=== PATIENT | male | born 1950 | race Caucasian/White ===

== ENCOUNTER 2018-11-12 13:08 | Observation (INO) ==
--- OUTSIDE RECORDS SUMMARY | 2018-11-12 13:11 | External Medical Summary | Continuity of Care Document ---
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 Refills: 0 Tamsulosin HCl - 0.4 MG Oral Capsule; daily Refills: 0 Losartan Potassium 50 MG Oral Tablet; TAKE 1 TABLET DAILY. 30 Tablet Bottle Refills: 0 Methylphenidate HCl - 20 MG Oral Tablet; daily Refills: 0 Excedrin TABS; TAKE 1 TABLET 3 TIMES DAILY NEEDED. Refills: 0 glipiZIDE 10 MG Oral Tablet; Two tabes every am Refills: 0 Procedures History of Inguinal Hernia Repair Status : Completed History of Laparoscopic Cholecystectomy With Status: Completed 01-Feb-2018 0:00 Cholangiography Immunizations Immunizations not documented Family History Mother Family history of cardiac disorder (V17.49) (Z82.49) Status: Active Family history of diabetes mellitus (V18.0) (Z83.3) Status: Active Family history of hypertension (V17.49) (Z82.49) Status: Svetlana hurst Father Family history of cardiac disorder (V17.49) (Z82.49) Status: Active Family history of diabetes mellitus (V18.0) (Z83.3) Status: Active Family history of hypertension (V17.49) (Z82.49) Status: Svetlana hurst Grandmother Family history of diabetes mellitus (V18.0) (Z83.3) Status: Active Family history of hypertension (V17.49) (Z82.49) Status: Svetlana hurst Social History - Smoking Status Current every day smoker Former smoker Plan of Treatment Planned Observations Planned Goals not documented Results No Known Results Results not documented Encounters Appointment; Chaz Thomas M.D. 01-Feb-2018 7:00 Encounter Diagnosis: Problem not documented Appointment; David Blanton M.D. 18-Jan-2018 13:35 Encounter Diagnosis: Problem not documented Appointment; Urology, Room 7 18-Jan-2018 13:20 Encounter Diagnosis: Problem not documented Appointment; Chaz Thomas M.D. 17-Jan-2018 9:40 Encounter Diagnosis: Problem not documented Appointment; Chaz Thomas M.D. 12-Feb-2018 14:00 Encounter Diagnosis: Problem not documented
[2018-11-12] MEDS ORDERED: SODIUM CHLORIDE 0.9% 500 ML IV SCH (13:30)
[2018-11-12] MEDS ORDERED: methylPREDNISolone 125 MG/2 ML VIAL IV STA (13:34)
[2018-11-12] MEDS ORDERED: ALBUT/IPRATROP 3MG/0.5MG NEB 3 ML VIAL NEB STA (13:34)
[2018-11-12] MEDS ORDERED: ONDANSETRON INJ 2 MG/ML 2 ML VIAL IV STA (13:34)
[2018-11-12] MEDS ORDERED: ACETAMINOPHEN 1,000 MG/100 ML VIAL IV STA (13:35)
--- NOTE | 2018-11-12 13:47 | XRay Report ---
XR chest 1V portable HISTORY: 68 years-old Male Chest Pain acute atypical chest pain COMPARISON: Chest radiograph 01/10/2018 TECHNIQUE: Portable AP view of the chest FINDINGS: Cardiomediastinal and hilar silhouettes are within normal limits and appear unchanged. There is no pn eumothorax, pleural effusion, focal airspace consolidation or overt pulmonary edema. Mild degenerativ e changes of the shoulders and spine. IMPRESSION: No acute process. The above report was generated using voice recognition software. It may contain grammatical, syntax o r spelling errors. Electronically signed by: Jamison Yanez M.D. 11/12/2018 1:46 PM
[2018-11-12 13:50] LABS: Basophils # (auto) 0.04 K/uL (0-0.2); Basophils % (auto) 0.3 %; Eosinophils # (auto) 0.03 K/uL (0-0.5); Eosinophils % (auto) 0.2 %; Hematocrit (blood only) 41.5 % (42-52); Hemoglobin 14.6 g/dL (14.0-18.0); Immature Granulocytes # (auto) 0.02 K/uL (0.00-0.02); Immature Granulocytes % (auto) 0.2 %; Lymphocytes # (auto) 1.38 K/uL (1.2-3.4); Lymphocytes % (auto) 11.3 %; Mean Corpuscular Hgb Conc 35.2 g/dL (32-36); Mean Corpuscular Volume 91.4 fL (80-100); Mean Platelet Volume 9.3 fL (7.4-10.4); Monocytes % (auto) 6.6 %; Neutrophils % (auto) 81.4 %; Platelet Count 292 K/uL (130-400); RDW Coefficient of Variation 13.1 % (11.5-14.5); RDW Standard Deviation 43.9 fL (36.4-46.3); Red Blood Count 4.54 M/uL (4.7-6.1); White Blood Count 12.17 K/uL (4.8-10.8)
[2018-11-12 14:07] LABS: Alanine Aminotransferase 22 U/L (12-78); Albumin Level 4.2 gm/dl (3.4-5.0); Aspartate Aminotransferase 12 U/L (15-37); BUN Creatinine Ratio 22.7 (10-20); Blood Urea Nitrogen 21 mg/dl (7-18); Calcium 9.2 mg/dl (8.5-10.1); Carbon Dioxide 26 mmol/L (21-32); Chloride 105 mmol/L (98-107); Est GFR (African American) 101.4; Est GFR (Non-African American) 87.5; Glucose 172 mg/dl (70-99); Magnesium 2.2 mg/dl (1.8-2.4); Potassium 3.8 mmol/L (3.5-5.1); Sodium 140 mmol/L (136-145)
[2018-11-12 14:12] LABS: Albumin Globulin Ratio 1.2 (0.9-2); Alkaline Phosphatase 89 U/L (45-117); Bilirubin,Total 0.4 mg/dl (0.2-1); Globulin 3.5 gm/dl (2.5-4.0); Phosphorus 4.1 mg/dl (2.5-4.9); Total Protein 7.7 gm/dl (6.4-8.2)
[2018-11-12] MEDS ORDERED: SODIUM CHLORIDE 0.9% 1000ML 1,000 ML IV ONE (14:22)
[2018-11-12] MEDS ORDERED: ASPIRIN CHEW 324 MG PO STA (17:42)
--- NOTE | 2018-11-12 18:23 | History & Physical Report ---
Date of Service November 12, 2018 Assessment & Plan (1) Chest pain: Heart score of 5, even with low-risk sounding story. Prior stress was negative, but that was >3 years ago per the patient. Initial troponin was 0.04 with next one of 0.05; not convincing for acute coronary ischemia. - Trend troponins and EKGs - Dobutamine stress in the AM (patient cannot walk long distances due to prior foot fracture) - Start aspirin 81mg daily (2) Asthma exacerbation: Mild asthma exacerbation from environmental causes. CXR showed no acute process, so will avoid abx for now. - Prednisone - DuoNebs standing and PRN (3) DMII (diabetes mellitus, type 2): No known A1c in charts. Blood sugars will likely rise with his prednisone. - Sliding scale insulin - Stop home oral meds - A1c in the morning (4) Hypertension: BP mildly elevated in the ED at 165/110. - Continue home meds - Monitor BP; consider adding another agent if consistently high (5) BPH (benign prostatic hyperplasia): - Continue tamsulosin (6) DVT prophylaxis: SCDs - Low DVT risk per admission calculator History of Present Illness Primary Care Provider: Julián Atwood DO 68-year-old male with a history of asthma who presents with chest pain and asthma exacerbation. Patient reports that he first noticed both some chest tightness as well as shortness of breath yesterday morning when he presented at work he reports that his work recently repaired/changed his HVAC system and now he has event directly over his desk. 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 He went to work this morning as normal, but when he sat at his desk he felt increased wheezing and chest tightness. He left his desk and the sensation improved; however, he returned to other times to his desk which worsened his chest tightness, chest pressure, and shortness of breath. He has not had any sick contacts. He denies any new fevers or chills, he denies any new diaphoresis, denies nausea or vomiting, denies palpitations, denies any new or different pain in his extremities. Allergies Allergy/AdvReac Type Severity Reaction Status Date / Time Penicillins Allergy Unknown hive Verified 11/12/18 14:16 NSAIDS (Non-Steroidal AdvReac Unknown gi distress Verified 11/12/18 14:16 Anti-Inflamma Home Medications Home Medications Medication Instructions Recorded Confirmed Type losartan 50 tab PO QAM 01/09/18 11/12/18 History metformin 1,000 tab PO BID 01/09/18 11/12/18 History methylphenidate HCl 30 tab PO QAM 01/09/18 11/12/18 History tamsulosin 0.4 mg PO QAM 01/09/18 11/12/18 History glipizide 20 mg PO QAM 01/30/18 11/12/18 History albuterol sulfate 2 puff INHALATION QID 11/12/18 11/12/18 History beclomethasone dipropionate [Qvar 1 mcg INHALATION BID 11/12/18 11/12/18 History RediHaler] hydrocodone-acetaminophen 1 tab PO HS 11/12/18 11/12/18 History losartan 50 mg PO DAILY 11/12/18 11/12/18 History Past Med/Surg History Medical History Hypertension DMII (diabetes mellitus, type 2) NIDDM GERD (gastroesophageal reflux disease) NO MEDS Gallstones Kidney stone on right side Lymphangioma of orbit Metatarsal fracture Obesity Prostate CA RADIATION THERAPY (2012) Surgical History H/O eye surgery R/T RIGHT ORBITAL LYMPHANGIOMA History of adenoidectomy History of colonoscopy History of cystoscopy CYSTOSCOPY, RIGHT URETEROSCOPY, LASER LITHO= 01/10/18= [facility] History of cystoscopy STENT REMOVAL 01/18/18 History of herniorrhaphy BILATERAL INGUINAL HERNIA REPAIR History of tonsillectomy Family History Mother Hypertension Other No pertinent family history Social History Preferred Language: Turkish Communication Ability: Effective Visual Impairment: No Limitations Supervising Bailiff Required: No Beliefs That Will Affect Care: Rastafari Rastafari Beliefs: Oriental Orthodox Current Living Situation: Spouse current occupational status: employed Feels Safe at Home: Yes Smoking Status: Former smoker (quit 2012) Tobacco Type: cigarettes ; Second Hand Exposure: No ; Hx Alcohol Use: Yes Alcohol type: other Hx Substance Use: No Review of Systems Review of Systems: All systems reviewed & are unremarkable except as noted in HPI & below Physical Exam Constitutional: WD/WN, vitals as above Eyes: EOM intact bilaterally; no conjunctival abnormality ENMT: external ear and nose normal, oropharynx normal Neck: trachea midline, no thyromegaly normal visual inspection Respiratory: + cough; no respiratory distress and not tachypneic Auscultation: + diminished lung sounds and + wheezes (Mild, scattered) Cardiovascular: RRR, no murmur, no edema Gastrointestinal (Abdomen): Inspection/Auscultation: abdomen normal to inspection; abdomen not distended Musculoskeletal: no cyanosis or clubbing, extremities motor strength 5/5 Skin: no rashes, warm and dry Neurologic: moves all extremities and awake Psychiatric: Orientation: alert, oriented to person and cooperative Results & Data Vital Signs (Past 12 Hours) Vital Signs Temp Pulse Pulse Resp BP BP Pulse Ox 11/12/18 18:03 99 H 26 H 164/113 H 98 11/12/18 17:03 77 20 146/86 H 95 11/12/18 16:00 77 15 133/82 97 11/12/18 15:17 77 15 133/74 99 11/12/18 14:35 88 20 130/72 94 11/12/18 13:56 109 H 26 H 97 11/12/18 13:11 36.7 C 134 H 22 174/102 H 97 PG Care Time/CCT Total # of Minutes Spent Total Time Spent with Patient: Total time spent is greater than 50% in coordination of care (as documented) at patient's floor/unit and/or counseling patient:
--- NOTE | 2018-11-12 18:36 | Emergency Department Note ---
Entered by Cyrus Power acting as a scribe for Juan Pablo Serrato MD History of Present Illness General Chief complaint: Chest Pain Stated complaint: INTENSE CHEST PAIN Time Seen by Provider: 11/12/18 13:16 Source: patient History of Present Illness Onset (ago): hour(s) (24) Location: chest Pain Consistency: + constant Maximum Pain Intensity: 5 Quality: + other (tightness and as if somone was sitting on chest ) Associated symptoms: + nausea/vomiting (+nausea; -vomiting), + shortness of breath and + other (+right abdominal pain); no headaches The patient is a 68 year old male who presents to the Emergency Room with complaints of constant chest pain over the past 24 hours. The patient describes the pain as tightness and as if someone was sitting on his chest. The patient believes the chest pain is a result of an airborne toxic at work. The patient states he works for the [employer] at [employer]. 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 The patient states he started experiencing chest pain and was forced to use both his steroidal and rescue inhaler multiple times during this incident. The patient states he experienced symptoms this morning as well and at work. The patient states that work has been done on the [employer] system at his workplace for two years, and he also notes a light at his workplace that just started working in the last two weeks. The patient states he had another asthma attack at work this morning, and he notes he was forced to use his inhaler multiple times again. The patient reports he rarely has used his inhaler in the past. The patient also states he started experiencing right abdominal pain, "where his gall bladder used to be". The patient reports he had his gallbladder removed in December. The patient also notes of nausea, but denies a headache. The patient reports he drove to [place] in September as his only recent long distance travel. Home Medications Home Medications Medication Instructions Recorded Confirmed Type losartan 50 tab PO QAM 01/09/18 11/12/18 History metformin 1,000 tab PO BID 01/09/18 11/12/18 History methylphenidate HCl 30 tab PO QAM 01/09/18 11/12/18 History tamsulosin 0.4 mg PO QAM 01/09/18 11/12/18 History glipizide 20 mg PO QAM 01/30/18 11/12/18 History albuterol sulfate 2 puff INHALATION QID 11/12/18 11/12/18 History beclomethasone dipropionate [Qvar 1 mcg INHALATION BID 11/12/18 11/12/18 History RediHaler] hydrocodone-acetaminophen 1 tab PO HS 11/12/18 11/12/18 History losartan 50 mg PO DAILY 11/12/18 11/12/18 History Allergies Allergy/AdvReac Type Severity Reaction Status Date / Time Penicillins Allergy Unknown hive Verified 11/12/18 14:16 NSAIDS (Non-Steroidal AdvReac Unknown gi distress Verified 11/12/18 14:16 Anti-Inflamma Past Med/Surg History Medical History Hypertension DMII (diabetes mellitus, type 2) NIDDM GERD (gastroesophageal reflux disease) NO MEDS Gallstones Kidney stone on right side Lymphangioma of orbit Metatarsal fracture Obesity Prostate CA RADIATION THERAPY (2012) Surgical History H/O eye surgery R/T RIGHT ORBITAL LYMPHANGIOMA History of adenoidectomy History of colonoscopy History of cystoscopy CYSTOSCOPY, RIGHT URETEROSCOPY, LASER LITHO= 01/10/18= LMA#5 AT [facility] History of cystoscopy STENT REMOVAL 01/18/18 History of herniorrhaphy BILATERAL INGUINAL HERNIA REPAIR History of tonsillectomy Family History Mother Hypertension Other No pertinent family history Social History Preferred Language: [place] Communication Ability: Effective Visual Impairment: No Limitations Foreign Broadcast Specialist Required: No Beliefs That Will Affect Care: None Current Living Situation: Spouse current occupational status: employed Feels Safe at Home: Yes Smoking Status: Former smoker Tobacco Type: cigarettes ; Cigarettes Per Day: 20 ; Second Hand Exposure: No ; Hx Alcohol Use: No Hx Substance Use: No Review of Systems See HPI for pertinent positives & negatives. and A total of 10 systems reviewed and were otherwise negative Physical Exam Vital Signs Vital Signs - 24 hr 11/12/18 13:11 11/12/18 13:56 11/12/18 14:35 Temperature 36.7 C Temperature Source Oral Sepsis Recent Fever Within 48 Hours No Sepsis Action Taken by Nursing No Action Required Pulse Rate 134 H Pulse Rate [Right Finger] 109 H 88 Respiratory Rate 22 26 H 20 Respiratory Effort / Characteristics Non-Labored Spontaneous Spontaneous Non-Labored Respiratory Depth Normal Normal Respiratory Pattern Regular Regular Blood Pressure 174/102 H Blood Pressure [Left Arm] 130/72 Blood Pressure Mean 126 Blood Pressure Mean [Left Arm] 91 Blood Pressure Position Lying Pulse Oximetry 97 97 94 Oxygen Delivery Method Room Air Room Air Room Air 11/12/18 15:17 11/12/18 16:00 11/12/18 17:03 Temperature Temperature Source Sepsis Recent Fever Within 48 Hours Sepsis Action Taken by Nursing Pulse Rate Pulse Rate [Right Finger] 77 77 77 Respiratory Rate 15 15 20 Respiratory Effort / Characteristics Non-Labored Respiratory Depth Normal Respiratory Pattern Regular Blood Pressure Blood Pressure [Left Arm] 133/74 133/82 146/86 H Blood Pressure Mean Blood Pressure Mean [Left Arm] 93 99 106 Blood Pressure Position Pulse Oximetry 99 97 95 Oxygen Delivery Method Room Air Room Air Room Air 11/12/18 18:03 Temperature Temperature Source Sepsis Recent Fever Within 48 Hours Sepsis Action Taken by Nursing Pulse Rate Pulse Rate [Right Finger] 99 H Respiratory Rate 26 H Respiratory Effort / Characteristics Non-Labored Respiratory Depth Normal Respiratory Pattern Regular Blood Pressure Blood Pressure [Left Arm] 164/113 H Blood Pressure Mean Blood Pressure Mean [Left Arm] 130 Blood Pressure Position Pulse Oximetry 98 Oxygen Delivery Method Room Air GENERAL: Awake, alert, anxious-appearing, in no distress HENT: Normocephalic, atraumatic. Oropharynx with dry mucous membranes and otherwise unremarkable. EYES: Normal conjunctiva. Sclera non-icteric. NECK: Supple. No nuchal rigidity. FROM. No JVD. RESPIRATORY: Scant intermittent wheezes otherwise CTAB. CARDIAC: Tachycardic rate, regular rhythm. Extremities warm and well perfused. Pulses equal. ABDOMEN: Soft, non-distended. No tenderness to palpation. No rebound or guarding. No masses. RECTAL: Deferred. MUSCULOSKELETAL: Chest examination reveals no tenderness. The back is symmetrical on inspection without obvious abnormality. There is no CVA tenderness to palpation. No joint edema. LOWER EXTREMITIES: Calves are equal size bilaterally and non-tender. No edema. No discoloration. NEURO: Normal sensorium. No sensory or motor deficits noted. SKIN: No rash or jaundice noted. Course 1328: Past medical records reviewed. The patient was evaluated in room C12B. A complete history and physical exam was performed. 1738: I discussed the case with Dr. Michelle-Burt [facility]. Dr. Michelle will further evaluate the patient. Consultations Consultation #1: I [facility]. Dr. Michelle will further evaluate the patient. Time: 17:38 Administered Medications Hydrocodone Bitart/Acetaminophen ([place] 5/325) 1 tab PO HS JUSTA Stop: 11/26/18 20:59 Last Admin: 11/12/18 20:54 Dose: 1 tab Documented by: [id number] Albuterol (Duoneb) 3 ml NEB Q4R JUSTA Stop: 12/12/18 19:29 Last Admin: 11/13/18 07:02 Dose: 3 ml Documented by: [id number] Admin: 11/13/18 02:08 Dose: 3 ml Documented by: [id number] Admin: 11/12/18 22:53 Dose: 3 ml Documented by: [id number] Admin: 11/12/18 20:12 Dose: 3 ml Documented by: [id number] Aspirin (Ecotrin Ectab) 81 mg PO QAM JUSTA Stop: 12/13/18 08:59 Last Admin: 11/13/18 08:09 Dose: 81 mg Documented by: [id number] Beclomethasone Dipropionate (Qvar 80mcg) 1 puffs INH BID JUSTA Stop: 12/12/18 20:59 Last Admin: 11/13/18 08:08 Dose: 1 puffs Documented by: [id number] Admin: 11/12/18 20:57 Dose: 1 puffs Documented by: [id number] Insulin Aspart (Novolog Flexpen) 0 units SC ACHS JUSTA Stop: 12/12/18 20:59 Last Admin: 11/13/18 08:11 Dose: 8 units Documented by: [id number] Cosigned by: [id number] Admin: 11/12/18 20:55 Dose: 6 units Documented by: [id number] Cosigned by: [id number] Losartan Potassium (Cozaar) 50 mg PO DAILY JUSTA Stop: 12/13/18 08:59 Last Admin: 11/13/18 08:09 Dose: 50 mg Documented by: [id number] Methylphenidate HCl (Ritalin) 30 mg PO DAILY JUSTA Stop: 11/27/18 08:59 Last Admin: 11/13/18 08:23 Dose: 30 mg Documented by: [id number] Morphine Sulfate (Morphine Sulfate) 2 mg IV Q4H PRN PRN Reason: Pain Stop: 11/26/18 20:01 Last Admin: 11/13/18 05:34 Dose: 2 mg Documented by: [id number] Admin: 11/12/18 22:19 Dose: 2 mg Documented by: [id number] Ondansetron HCl (Zofran) 4 mg IV Q4H PRN PRN Reason: Nausea Stop: 12/13/18 03:00 Last Admin: 11/13/18 03:11 Dose: 4 mg Documented by: [id number] Prednisone (Prednisone) 50 mg PO DAILY JUSTA Stop: 12/13/18 08:59 Last Admin: 11/13/18 08:10 Dose: 50 mg Documented by: [id number] Tamsulosin HCl (Flomax) 0.4 mg PO QAM JUSTA Stop: 12/13/18 08:59 Last Admin: 11/13/18 08:10 Dose: 0.4 mg Documented by: [id number] Discontinued Medications Albuterol (Duoneb) 3 ml NEB NOW STA Stop: 11/12/18 13:35 Last Admin: 11/12/18 13:56 Dose: 3 ml Documented by: [id number] Aspirin (Aspirin) 162 mg PO NOW STA Stop: 11/12/18 17:43 Last Admin: 11/12/18 18:01 Dose: 162 mg Documented by: [id number] Calcium Carbonate (Tums) 500 mg PO ONE PRN PRN Reason: Indigestion Last Admin: 11/13/18 06:28 Dose: 500 mg Documented by: [id number] Sodium Chloride (Nss) 500 mls @ 999 mls/hr IV .Q31M JUSTA Stop: 11/12/18 14:00 Last Infusion: 11/12/18 14:28 Dose: 0 mls/hr Documented by: [id number] Admin: 11/12/18 13:55 Dose: 999 mls/hr Documented by: [id number] Acetaminophen (Ofirmev) 1,000 mg in 100 mls @ 400 mls/hr IV NOW STA Stop: 11/12/18 13:49 Last Infusion: 11/12/18 14:28 Dose: 0 mls/hr Documented by: [id number] Admin: 11/12/18 13:55 Dose: 400 mls/hr Documented by: [id number] Sodium Chloride (Nss 1000ml) 1,000 mls @ 999 mls/hr IV .Q1H1M ONE Stop: 11/12/18 15:22 Last Infusion: 11/12/18 15:48 Dose: 0 mls/hr Documented by: [id number] Admin: 11/12/18 14:41 Dose: 999 mls/hr Documented by: [id number] Methylprednisolone (Solumedrol) 125 mg IV NOW STA Stop: 11/12/18 13:35 Last Admin: 11/12/18 13:55 Dose: 125 mg Documented by: [id number] Ondansetron HCl (Zofran) 4 mg IV NOW STA Stop: 11/12/18 13:35 Last Admin: 11/12/18 13:55 Dose: 4 mg Documented by: [id number] Medical Decision Making Differential Diagnosis Differential diagnosis: Etiologies such as infections, reactive airway disease, pneumonia, pneumothorax, COPD, CHF, cardiac ischemia, pulmonary embolism, musculoskeletal, gastrointestinal, as well as others were entertained. Medical Records Attestation: I reviewed the patient's medical records. Home Medications Current Medication List: was personally reviewed by me Laboratory Data Attestation: I reviewed the patient's lab results. Result diagrams: 11/13/18 06:16 11/13/18 06:16 Lab Results 11/12/18 11/12/18 11/12/18 Range/Units 13:41 13:41 16:17 WBC 12.17 H (4.8-10.8) K/uL RBC 4.54 L (4.7-6.1) M/uL Hgb 14.6 (14.0-18.0) g/dL Hct 41.5 L (42-52) % MCV 91.4 (80-100) fL MCH 32.2 (25-34) pg MCHC 35.2 (32-36) g/dL RDW Std Deviation 43.9 (36.4-46.3) fL RDW Coeff of Sarah 13.1 (11.5-14.5) % Plt Count 292 (130-400) K/uL MPV 9.3 (7.4-10.4) fL Immature Gran % (Auto) 0.2 % Neut % (Auto) 81.4 % Lymph % (Auto) 11.3 % Fannin % (Auto) 6.6 % Eos % (Auto) 0.2 % Baso % (Auto) 0.3 % Immature Gran # (Auto) 0.02 (0.00-0.02) K/uL Neut # (Auto) 9.90 H (1.4-6.5) K/uL Lymph # (Auto) 1.38 (1.2-3.4) K/uL Fannin # (Auto) 0.80 H (0.11-0.59) K/uL Eos # (Auto) 0.03 (0-0.5) K/uL Baso # (Auto) 0.04 (0-0.2) K/uL Sodium 140 (136-145) mmol/L Potassium 3.8 (3.5-5.1) mmol/L Chloride 105 (98-107) mmol/L Carbon Dioxide 26 (21-32) mmol/L Anion Gap 8.0 (3-11) BUN 21 H (7-18) mg/dl Creatinine 0.91 (0.6-1.4) mg/dl Est Cr Clr Drug Dosing Not Reportable Est GFR ( Amer) 101.4 Est GFR (Non-Af Amer) 87.5 BUN/Creatinine Ratio 22.7 H (10-20) Glucose 172 H (70-99) mg/dl Calcium 9.2 (8.5-10.1) mg/dl Phosphorus 4.1 (2.5-4.9) mg/dl Magnesium 2.2 (1.8-2.4) mg/dl Total Bilirubin 0.4 (0.2-1) mg/dl AST 12 L (15-37) U/L ALT 22 (12-78) U/L Alkaline Phosphatase 89 (45-117) U/L Troponin I 0.040 0.052 H* (0-0.045) ng/ml Total Protein 7.7 (6.4-8.2) gm/dl Albumin 4.2 (3.4-5.0) gm/dl Globulin 3.5 (2.5-4.0) gm/dl Albumin/Globulin Ratio 1.2 (0.9-2) Lipase 155 (73-393) U/L Imaging Data Radiologist's Impression: Radiology results as stated below per my review and the radiologist's interpretation: XR chest 1V portable HISTORY: 68 years-old Male Chest Pain acute atypical chest pain COMPARISON: Chest radiograph 01/10/2018 TECHNIQUE: Portable AP view of the chest FINDINGS: Cardiomediastinal and hilar silhouettes are within normal limits and appear unchanged. There is no pneumothorax, pleural effusion, focal airspace consolidation or overt pulmonary edema. Mild degenerative changes of the shoulders and spine. IMPRESSION: No acute process. The above report was generated using voice recognition software. It may contain grammatical, syntax or spelling errors. Electronically signed by: Jamison Yanez M.D. 11/12/2018 1:46 PM ECG Data Attestation: I personally reviewed and interpreted this ECG as follows: Indication: chest pain Rate (beats per minute): 119 Rhythm: sinus tachycardia Findings: + other (normal axis, no overt acute ischemia, QRS 98) and + PVC (occasional ) Comparison ECG Date: from (01/10/18) Change: no significant change Blood Pressure Blood Pressure Findings: Normal blood pressure MDM Narrative The patient is a pleasant 68-year-old gentleman with a past medical history of asthma, BPH, retention who presents emergency department with shortness of breath, wheezing and chest tightness since yesterday per hpi. On arrival patient is anxious appearing but no acute distress, afebrile with heart rate in 130s and vital signs otherwise stable. Patient appears clinically dry. Scant intermittent wheezes otherwise clear. EKG demonstrates sinus tachycardia, QRS 98, without overt acute ischemia and similar to prior. Chest x-ray negative for acute process. WBC 12, nonspefic. Hbg and platelets wnl. Chemistry without acidosis. BUN/Cr > 20 c/w patient's clinically dry appearance. Electrolytes and LFTs unremarkable. Patient feeling improved with resolution of sx after initial treatment with Solumedrol, duoneb, IVF, and Apap. HR improved to 70s-80s. Initial troponin 0.04 however given the patient reported acute worsening of symptoms prior to arrival today delta 3-hour troponin was performed and demonstrated interval change to 0.052. Also during this time the patient had a brief 1 minute episode of substernal chest pain that resolved however repeat EKG was unchanged. Given the patient's recurrent symptoms and troponin elevation reasonable to admit the patient for further cardiac evaluation. Case was discussed with RACIEL LongoriaG hospitalist, who evaluate the patient for admission. Impression & Plan Elevated troponin, Asthma exacerbation, Chest pain Discharge Plan Visit Data *Final* Discharge Date/Time: 11/12/18 18:54 Chief Complaint: Chest Pain Stated Complaint: INTENSE CHEST PAIN ED Provider: Juan Pablo Serrato Discharge Problem: Elevated troponin, Asthma exacerbation, Chest pain Patient Disposition: Admitted As Inpatient Discharge Instructions Interventions: ED Discharge Assessment Last Done: 11/12/18 18:54 Discharge Problem: Asthma exacerbation Qualifiers: Asthma severity: unspecified severity Asthma persistence: unspecified Qualified Code(s): J45.901 - Unspecified asthma with (acute) exacerbation Chest pain Qualifiers: Chest pain type: unspecified Qualified Code(s): R07.9 - Chest pain, unspecified The scribe's documentation has been prepared under my direction and personally reviewed by me in its entirety. I confirm that the note above accurately reflects all work, treatment, procedures, and medical decision making performed by me.
[2018-11-12] MEDS ORDERED: ACETAMINOPHEN 325 MG TAB PO PRN (19:11)
[2018-11-12] MEDS ORDERED: GLUCAGON FOR INJ 1 MG VIAL SQ PRN (19:11)
[2018-11-12] MEDS ORDERED: GLUCOSE 40% GEL 15 GM TUBE PO PRN (19:11)
[2018-11-12] MEDS ORDERED: GLUCOSE 10 TABS/TUBE PO PRN (19:11)
[2018-11-12] MEDS ORDERED: DEXTROSE 50% 50 ML SYRINGE IV PRN (19:11)
[2018-11-12] MEDS ORDERED: CARBOHYDRATES FOR HYPOGLYCEMIA PO PRN (19:11)
[2018-11-12] MEDS: ALBUT/IPRATROP 3MG/0.5MG NEB 3 ML VIAL NEB SCH ×2 (20:12→22:53)
[2018-11-12] MEDS: HYDROCODONE/ACETAMOPHEN 5/325MG TAB PO SCH (20:54)
[2018-11-12] MEDS: INSULIN ASPART 100 UNITS/ML 3 ML PEN SC SCH (20:55)
[2018-11-12] MEDS: BECLOMETHASONE DIP HFA 80 MCG 8.7G INH INH SCH (20:57)
[2018-11-12] MEDS ORDERED: HydrALAZINE HCL 20 MG/ML VIAL IV PRN (21:40)
[2018-11-12] MEDS: MoRPHine SULFATE 2 MG/ML CARP IV PRN (22:19)
[2018-11-13] MEDS: ALBUT/IPRATROP 3MG/0.5MG NEB 3 ML VIAL NEB SCH ×3 (02:08→13:02)
[2018-11-13] MEDS: ONDANSETRON INJ 2 MG/ML 2 ML VIAL IV PRN ×3 (03:11→18:18)
[2018-11-13] MEDS: MoRPHine SULFATE 2 MG/ML CARP IV PRN ×3 (05:34→18:21)
[2018-11-13] MEDS ORDERED: CALCIUM CARBONATE 500 MG CHEWABLE TAB PO PRN (06:13)
[2018-11-13 06:33] LABS: Hemoglobin 13.5 g/dL (14.0-18.0); Mean Corpuscular Hgb Conc 34.6 g/dL (32-36); Mean Corpuscular Volume 90.9 fL (80-100); Mean Platelet Volume 9.7 fL (7.4-10.4); Platelet Count 278 K/uL (130-400); RDW Standard Deviation 43.2 fL (36.4-46.3); Red Blood Count 4.29 M/uL (4.7-6.1); White Blood Count 11.32 K/uL (4.8-10.8)
[2018-11-13 06:47] LABS: Estimated Average Glucose 177 mg/dl; Hemoglobin A1C 7.8 % (4.5-5.6)
[2018-11-13 07:16] LABS: Calcium 9.1 mg/dl (8.5-10.1); Creatinine Clr Calc Pharmacy 103.4 ml/min; Est GFR (African American) 105.7; Est GFR (Non-African American) 91.2; Potassium 4.6 mmol/L (3.5-5.1)
[2018-11-13] MEDS: BECLOMETHASONE DIP HFA 80 MCG 8.7G INH INH SCH ×2 (08:08→21:05)
[2018-11-13] MEDS: ASPIRIN 81 MG ECTAB PO SCH (08:09)
[2018-11-13] MEDS: LOSARTAN POTASSIUM 50 MG TAB PO SCH (08:09)
[2018-11-13] MEDS: TAMSULOSIN HCL 0.4 MG CAP PO SCH (08:10)
[2018-11-13] MEDS: predniSONE 50 MG TAB PO SCH (08:10)
[2018-11-13] MEDS: INSULIN ASPART 100 UNITS/ML 3 ML PEN SC SCH ×4 (08:11→20:50)
[2018-11-13] MEDS: METHYLPHENIDATE HCL 10 MG TABLET PO SCH (08:23)
[2018-11-13] MEDS ORDERED: MIDAZOLAM HCL 1 MG/ML 2ML VIAL ONE ×3 (10:42→11:39)
[2018-11-13] MEDS ORDERED: HEPARIN (PORCINE) 1000 UNIT/ML 10 ML (CATH LAB USE ONLY) ONE ×2 (10:42→11:32)
[2018-11-13] MEDS ORDERED: fentaNYL citrate 100 MCG/2 ML VIAL ONE ×2 (10:42→11:32)
[2018-11-13] MEDS ORDERED: NITROGLYCERIN/D5W 100MCG/ML 20ML SYR ONE (10:43)
[2018-11-13] MEDS ORDERED: NiCARDipine HCL INJ 2.5 MG/ML 10 ML AMP ONE (10:43)
[2018-11-13] MEDS ORDERED: ONDANSETRON INJ 2 MG/ML 2 ML VIAL ONE (10:46)
[2018-11-13] MEDS ORDERED: MoRPHine SULFATE 2 MG/ML CARP ONE ×2 (10:50→10:54)
[2018-11-13] MEDS ORDERED: CLOPIDOGREL BISULFATE 300 MG TAB ONE (11:49)
--- NOTE | 2018-11-13 11:52 | Pre Anesthesia Assessment ---
Date of Service November 13, 2018 Pre Sedation Assessment Vital Signs Temp Pulse Pulse Resp BP BP BP 11/13/18 08:00 36.6 C 61 18 165/79 H 11/13/18 07:20 56 L 11/13/18 07:04 83 16 11/13/18 03:59 36.6 C 78 19 159/92 H 11/13/18 02:08 60 16 11/12/18 23:57 92 H 11/12/18 23:34 36.8 C 93 H 19 148/90 H 11/12/18 22:53 86 16 11/12/18 20:47 112 H 11/12/18 20:15 91 H 16 11/12/18 19:13 36.8 C 92 H 18 177/93 H 11/12/18 18:54 11/12/18 18:41 82 16 177/99 H 11/12/18 18:03 99 H 26 H 164/113 H 11/12/18 17:03 77 20 146/86 H 11/12/18 16:00 77 15 133/82 11/12/18 15:17 77 15 133/74 11/12/18 14:35 88 20 130/72 11/12/18 13:56 109 H 26 H 11/12/18 13:11 36.7 C 134 H 22 174/102 H Pulse Ox 11/13/18 08:00 94 11/13/18 07:20 11/13/18 07:04 96 11/13/18 03:59 97 11/13/18 02:08 98 11/12/18 23:57 11/12/18 23:34 95 11/12/18 22:53 98 11/12/18 20:47 11/12/18 20:15 97 11/12/18 19:13 95 11/12/18 18:54 95 11/12/18 18:41 97 11/12/18 18:03 98 11/12/18 17:03 95 11/12/18 16:00 97 11/12/18 15:17 99 11/12/18 14:35 94 11/12/18 13:56 97 11/12/18 13:11 97 Cardiovascular RRR, no murmur, no edema Respiratory normal respiratory effort, lungs clear to auscultation Pre-Sedation Airway Assessment Smoking Status: Former smoker Hx Sleep Apnea: No Hx Difficult Intubation: No Short, Thick Neck: No Thyromental Distance: > or= 3.5 Finger Breadths Oral Cavity: + WNL Mallampati Class: III Procedure Planning Contraindications for Sedation: none Current Medications Reviewed: Yes Notes The planned sedation has been discussed with the patient. Informed Consent was obtained. I have identified the patient, determined the appropriateness of sedation and have assessed the patient immediately prior to the procedure. All medicine(s) and interventions are by my order.
--- NOTE | 2018-11-13 11:52 | Post Anesthesia Assessment ---
Date of Service November 13, 2018 Post Sedation Assessment Vital Signs Temp Pulse Pulse Resp BP BP BP 11/13/18 08:00 36.6 C 61 18 165/79 H 11/13/18 07:20 56 L 11/13/18 07:04 83 16 11/13/18 03:59 36.6 C 78 19 159/92 H 11/13/18 02:08 60 16 11/12/18 23:57 92 H 11/12/18 23:34 36.8 C 93 H 19 148/90 H 11/12/18 22:53 86 16 11/12/18 20:47 112 H 11/12/18 20:15 91 H 16 11/12/18 19:13 36.8 C 92 H 18 177/93 H 11/12/18 18:54 11/12/18 18:41 82 16 177/99 H 11/12/18 18:03 99 H 26 H 164/113 H 11/12/18 17:03 77 20 146/86 H 11/12/18 16:00 77 15 133/82 11/12/18 15:17 77 15 133/74 11/12/18 14:35 88 20 130/72 11/12/18 13:56 109 H 26 H 11/12/18 13:11 36.7 C 134 H 22 174/102 H Pulse Ox 11/13/18 08:00 94 11/13/18 07:20 11/13/18 07:04 96 11/13/18 03:59 97 11/13/18 02:08 98 11/12/18 23:57 11/12/18 23:34 95 11/12/18 22:53 98 11/12/18 20:47 11/12/18 20:15 97 11/12/18 19:13 95 11/12/18 18:54 95 11/12/18 18:41 97 11/12/18 18:03 98 11/12/18 17:03 95 11/12/18 16:00 97 11/12/18 15:17 99 11/12/18 14:35 94 11/12/18 13:56 97 11/12/18 13:11 97 Recovery Score Activity: Moves 4 extremities Respiration: Deep Breath/Cough Circulation: +/-20% PreAnes Value Consciousness: Fully Awake Oxygen Saturation: O2 needed for >90% Discharge Sedation Level of Care: Fast Track Phase II Post Sedation Plan On clinical assessment, the patient appears to have tolerated the sedation without complications. Patient is recovering as anticipated. Patient will continue to be monitored by nursing and may be discharged when sedation discharge criteria are met per below protocol. Upon Completions of procedure and additional 15 minutes continue every 5 minute vital signs and the P.A.R. score; then discharge to a Phase I or Fast Track to Phase II per the following guidelines: * Discharge Patient to appropriate Phase II area if PAR is 8 or greater or return to pre- procedure baseline. The post - procedure orders will be as directed. * If PAR score is less than 8 or not return to pre-procedure baseline then patient will follow Phase I monitoring till PAR is reached for Phase II. The Phase I may be done in procedure room or may call to secure a Phase I area. * If naloxone or flumazenil are used for reversal, hold in Phase I for continued monitoring from when last reversal dose was given for a minimum of 60 minutes or longer pending the nurse and/or physician discretion of patient condition before discharge to Phase II. Please call the Sedation Physician to re-evaluate and complete post-note for discharge to Phase II area. Do NOT discharge from procedure sedation or Phase 1 until post- sedation evaluation note is complete by procedure /sedation MD Sedation Discharge Instructions to be given to the patient at discharge to home.
--- NOTE | 2018-11-13 12:02 | Cardiac Catheterization ---
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 Cardiac Status Clinical evaluation leading to the procedure CAD Presenation: Non STEMI Anginal Classification: CCS IV Heart Failure: No Cardiogenic Shock within 24 Hours: No Cardiac Arrest within 24 Hours: No Imaging Studies Past 6 Months: Yes Stress Studies Past 6 Months: No Diagnostic Physicians Name: Bennett Warren MD Closure Device Percutaneous Entry Location: Brachial Closure Device: Radial Band Recommendations: PCI without planned CABG PCI Indication: PCI for high risk Non-KRISH Lesion Segment Name: Proximal OM 1 Culprit Artery: Yes Stenosis Prior to Rx (%): 90 Chronic Total Occlusion: No IVUS: No FFR: No Pre-Procedure PERRY Flow: 3 Previously Treated Lesion: No Lesion Complexity: Non-High/Non-C Lesion Length (mm): 15 Thrombus Present: No Bifurcation Lesion: No Guidewire Across Lesion: Stenosis Post-Procedure (%): 0 Post-Procedure PERRY Flow: 3 Devices(s) Deployed: Yes Yes Intraprocedure Events Significant Disection: No Perforation: No Cardiac Cath Procedure Full Procedure Date November 13, 2018 Pre-Procedure Diagnosis Pre-Procedure Diagnosis: Acute Coronary Syndrome AUC Score AUC Score: 8 Post-Procedure Diagnosis Post-Procedure Diagnosis: Severe CAD and Normal Intracardiac Pressures Procedure(s) Performed Procedure(s) Performed: Coronary Angiography, Left Heart Cath, Drug Eluting Stent and IVUS Line Maintainer Bennett Warren MD Emergency Room Orderly(s) Rasheed Estimated Blood Loss Estimated Blood Loss: 10 Medication(s) Medication(s): Clopidogrel, Fentanyl, Heparin, Lidocaine 1%, Nicardipine, Nitroglycerin and Versed Summary of Findings Indication: Suspected acute coronary syndrome Access: 6 Fr right radial artery Catheters: Newell, JL 3.5 guide Findings: LM -moderate caliber, 30% ostial disease with catheter dampening with engagement LAD -moderate caliber vessel, calcified, diffuse proximal to mid 40 to 50% disease, distal luminal irregularities and tapers prior to apex. Large first diagonal with 30 to 40% disease Circumflex -moderate caliber vessel, 20 to 30% mid segment disease, small to moderate caliber first OM with 80 to 90% disease. Bifurcating OM 2 with 70% disease at bifurcation. RCA -dominant, large caliber vessel, 30 to 40% ostial stenosis, diffuse 20 to 30% mid segment disease, distal luminal irregularities, diffuse 20 to 30% disease in proximal PDA, large caliber right PLB 2 and 3. Small PLB 1 with 60 to 70% proximal disease. LVEDP -10 -- PCI -- Antithrombotic therapy: Heparin, clopidogrel Procedure: Left main cannulated with JL 3.5 guide BMW wire placed into mid LAD IVUS used to assess ostium of left main. Moderate diffuse proximal LAD disease. Circumferential, mildly calcified, moderate disease involving ostium the left main (MLA 9.9 mm). BMW wire removed from LAD and placed into OM1 Proximal OM1 lesion predilated with 2.0 compliant balloon Dilated lesion stented with 2.25 x 18 mm [place] drug-eluting stent Stent post-dilated with stent balloon IC vasodilators administered for spasm Post procedure PERYR 3 flow, stent well expanded with minimal residual stenosis and no apparent cardiac complications. Arterial Closure: TR band Summary: 1. 80 to 90% proximal small to moderate caliber OM1 2. 30% ostial left main (nonobstructive by IVUS MLA 9.9 mm) 3. Mild to moderate nonobstructive multivessel disease 30 to 40% ostial RCA, 60-70% small right PLB 40 to 50% diffuse proximal to mid LAD 60-70% proximal bifurcating OM 2 4. Normal intracardiac filling pressure 5. Successful PCI of proximal OM1 with single drug-eluting stent (2.25 x 18 mm Kwadwo). Recommendations: To PCU for continued monitoring Loaded with clopidogrel 600 mg in cardiac catheterization technologist Continue dual-antiplatelet therapy for at least one year Continue statin, and ASCVD risk factor modification Consult cardiac Rehab Hemodynamics Rest Ao:: 112/60/83 Final Ao: 129/59/89 LV: 127/10 Recommendations Recommendations: PCI without planned CABG Specimens Specimens: None Radiation Exposure (mGy) 2560 Contrast (mls) 150 Fluids (cc crystalloids) Fluids (cc crystalloids): 90 Drains Drains: None Anesthesia Moderate Procedural Complication(s) None Disposition PCU
[2018-11-13] MEDS ORDERED: ONDANSETRON INJ 2 MG/ML 2 ML VIAL IV PRN (12:03)
[2018-11-13] MEDS ORDERED: SODIUM CHLORIDE 0.9% 1000ML 1,000 ML IV SCH (12:15)
--- NOTE | 2018-11-13 13:44 | Hospitalist Progress Note ---
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 CXR showed no acute process, so will avoid abx for now. - Prednisone - DuoNebs to PRN per pt request No longer with SOB post-cath, possibly asthma was being triggered by cardiac status (3) Nausea: States sx are similar to pre-mamie Mamie was last fall Possibly cholidocholithiasis Will need eval for this once cardiac issues are stable, not necessarily as inpt if tolerating PO-I did discuss this with pt and and they agree (4) DMII (diabetes mellitus, type 2): No known A1c in charts. Blood sugars will likely rise with his prednisone. - Sliding scale insulin - Stop home oral meds - A1c 7.8 (5) Hypertension: BP mildly elevated in the ED at 165/110. - Continue home meds - Monitor BP; consider adding another agent if consistently high (6) BPH (benign prostatic hyperplasia): - Continue tamsulosin (7) DVT prophylaxis: SCDs - Low DVT risk per admission calculator Subjective Pt still with chest pain, however it is improved to about a 5/10 from 9/10 prior to cath. Morphine is helping. Ongoing nausea that has been an issue for the last few weeks, worse the last week. Pt states he had his gallbladder out last fall and was doing great, however about a month ago he started having intense spells of nausea after eating that would last 5-10 minutes. Over the last week they have been more frequent and more intense. He is having epigastric pain that radiates to the R. All of this is similar to prior to his cholecystectomy. Zofran does help some. 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 Pt denies SOB s/p cath. He states that the nebs make his anxiety much worse and he would rather not have this scheduled. Ongoing LE pain related to known hip injury. Pt denies fever, abd pain, c/d, LE swelling. Review of Systems Review of Systems: Pertinent positives and negatives reviewed in HPI--all others negative Physical Exam Constitutional: WD/WN, vitals as above Eyes: normal visual lopez by confrontation and + anicteric sclerae Neck: normal visual inspection and trachea midline Respiratory: normal respiratory effort, lungs clear to auscultation Cardiovascular: Rate/Rhythm: regular rate and regular rhythm Gastrointestinal (Abdomen): Inspection/Auscultation: abdomen not distended Percussion/Palpation: + abdomen tender (diffuse) and abdomen soft Musculoskeletal: Head/Neck/Chest: normocephalic and head atraumatic negative for edema, peripheral pulses intact Skin: no rashes, warm and dry Neurologic: awake; not confused Speech / Cognition: normal speech Psychiatric: A+Ox3, euthymic affect Results & Data Vital Signs (Past 12 Hours) Vital Signs Temp Pulse Pulse Resp BP BP Pulse Ox 11/13/18 13:30 85 20 148/68 H 96 11/13/18 13:03 88 20 156/72 H 97 11/13/18 12:48 86 20 155/87 H 97 11/13/18 12:33 85 20 152/78 H 94 11/13/18 12:23 36.6 C 102 H 102 H 20 146/72 H 96 11/13/18 08:00 36.6 C 61 18 165/79 H 94 11/13/18 07:20 56 L 11/13/18 07:04 83 16 96 11/13/18 03:59 36.6 C 78 19 159/92 H 97 11/13/18 02:08 60 16 98 PG Care Time/CCT Total # of Minutes Spent Total Time Spent with Patient: Total time spent is greater than 50% in coordination of care (as documented) at patient's floor/unit and/or counseling patient: (1) Chest pain Chest pain type: unspecified Qualified Code(s): R07.9 - Chest pain, unspecified (2) Asthma exacerbation Asthma persistence: unspecified Asthma severity: unspecified severity Qualified Code(s): J45.901 - Unspecified asthma with (acute) exacerbation
--- NOTE | 2018-11-13 14:32 | Cardiology Consultation ---
Date of Consultation November 13, 2018 Assessment & Plan (1) Chest pain: The patient is description of chest discomfort is very concerning for an acute coronary syndrome. He demonstrated transient ST elevation in the anteroseptal leads last evening, and his troponin was mildly elevated. As he was having ongoing symptoms at rest, we have opted to proceed with an urgent cardiac catheterization. (2) Elevated troponin: Mildly elevated, but the history is concerning. As above, we will proceed with an urgent cardiac catheterization. (3) Abnormal ECG: Dynamic changes noted in the anteroseptal leads. Management as above. History of Present Illness Attending Physician: Naeem Michelle MD History of Present Illness The patient is a 68-year-old male admitted last evening with a chest pain syndrome. I was called to evaluate the patient to cardiopulmonary lab because of a sinus tachycardia. Unfortunately, the patient has history is difficult to obtain as the patient is unable to remain focused when asked a question. In any event, it appears that he began experiencing an exacerbation of his asthma over the weekend. When he would use 1 of his rescue inhalers, he developed significant discomfort in the mid epigastrium which radiated across the lower chest towards his right axilla. He would have associated nausea, vomiting, and diaphoresis. This occurred several times each day, however, became quite pronounced yesterday while at work. On arrival here, his initial troponin was at the upper limits of normal and his EKG showed no acute findings. A dobutamine stress test was ordered for further evaluation. Of note, an EKG obtained at 10:24 p.m. noted sinus rhythm with ST elevation across the anteroseptal leads. On my arrival to the cardiopulmonary lab, the patient was complaining of chest discomfort as described above. He was holding and emesis basin and was diaphoretic. A quick look at his left ventricle suggested hypokinesis of the apex. I immediately call Dr. Warren and described the situation. We decided to proceed with an urgent cardiac catheterization. I partially wheeled the patient over to the cardiac catheterization laboratory. Past medical and surgical history 1. Hypertension 2. Diabetes mellitus 3. Asthma 4. GERD 5. Nephrolithiasis 6. History of prostate carcinoma-XRT, 2012 7. Right orbital lymphoangioma 8. Bilateral inguinal hernia repair 9. Tonsillectomy Social history and lives with his [facility] Quit tobacco use in 2012 Social alcohol Family history Unknown as he was raised by his grandparents Review of systems A 10 point review of systems was undertaken and negative except for that described above. Allergies Allergy/AdvReac Type Severity Reaction Status Date / Time Penicillins Allergy Unknown hive Verified 11/12/18 14:16 NSAIDS (Non-Steroidal AdvReac Unknown gi distress Verified 11/12/18 14:16 Anti-Inflamma Home Medications Home Medications Medication Instructions Recorded Confirmed Type losartan 50 tab PO QAM 01/09/18 11/12/18 History metformin 1,000 tab PO BID 01/09/18 11/12/18 History methylphenidate HCl 30 tab PO QAM 01/09/18 11/12/18 History tamsulosin 0.4 mg PO QAM 01/09/18 11/12/18 History glipizide 20 mg PO QAM 01/30/18 11/12/18 History albuterol sulfate 2 puff INHALATION QID 11/12/18 11/12/18 History beclomethasone dipropionate [Qvar 1 mcg INHALATION BID 11/12/18 11/12/18 History RediHaler] hydrocodone-acetaminophen 1 tab PO HS 11/12/18 11/12/18 History losartan 50 mg PO DAILY 11/12/18 11/12/18 History Patient History Medical History Hypertension DMII (diabetes mellitus, type 2) NIDDM GERD (gastroesophageal reflux disease) NO MEDS Gallstones Kidney stone on right side Lymphangioma of orbit Metatarsal fracture Obesity Prostate CA RADIATION THERAPY (2012) Surgical History H/O eye surgery R/T RIGHT ORBITAL LYMPHANGIOMA History of adenoidectomy History of colonoscopy History of cystoscopy CYSTOSCOPY, RIGHT URETEROSCOPY, LASER LITHO= 01/10/18= LMA#5 AT [facility] History of cystoscopy STENT REMOVAL 01/18/18 History of herniorrhaphy BILATERAL INGUINAL HERNIA REPAIR History of tonsillectomy Family History Mother Hypertension Other No pertinent family history Social History Preferred Language: Icelandic Communication Ability: Effective Visual Impairment: No Limitations Firefighter Type One Required: No Beliefs That Will Affect Care: None Current Living Situation: Spouse current occupational status: employed Feels Safe at Home: Yes Smoking Status: Former smoker Tobacco Type: cigarettes ; Cigarettes Per Day: 20 ; Second Hand Exposure: No ; Hx Alcohol Use: No Hx Substance Use: No Physical Exam Physical Exam: In general this is a well-developed well-nourished white male in moderate distress. HEENT exam is negative. Neck is supple with full carotid upstrokes. There are no carotid bruits. Jugular venous pressure is flat at 90. There is no thyromegaly. Cardiovascular exam reveals a regular rhythm with a normal S1 and S2. No S3, S4, or murmurs are noted. Lungs are clear without rales, rhonchi, or wheezes. Abdomen is soft and nontender without bruits. Extremities reveal intact radial artery and posterior tibial pulses bilaterally. There is no peripheral edema. Results & Data Vital Signs (Past 12 Hours) Vital Signs Temp Pulse Pulse Resp BP BP Pulse Ox 11/13/18 13:30 85 20 148/68 H 96 11/13/18 13:03 88 20 156/72 H 97 11/13/18 12:48 86 20 155/87 H 97 11/13/18 12:33 85 20 152/78 H 94 11/13/18 12:23 36.6 C 102 H 102 H 20 146/72 H 96 11/13/18 08:00 36.6 C 61 18 165/79 H 94 11/13/18 07:20 56 L 11/13/18 07:04 83 16 96 11/13/18 03:59 36.6 C 78 19 159/92 H 97 Laboratory Results CBC notes a hemoglobin of 13.5, hematocrit 39.0, white count 11.3, and platelet count [id number]. Electrolytes notes a sodium of 138, potassium 4.6, chloride 104, bicarb 29, BUN 15, creatinine 0.86, glucose of 264. Initial troponin was 0.04 with follow-up values of 0.052 and 0.024. Diagnostic Findings Initial EKG noted sinus rhythm with a PVC and old anteroseptal MN. EKG done at 10:24 p.m. noted normal sinus rhythm with a left axis deviation and ST elevation in the anteroseptal leads. EKG done at 5:55 a.m. noted no evidence of ST segment changes. PG Care Time/CCT Total # of Minutes Spent Total Time Spent with Patient: Total time spent is greater than 50% in coordination of care (as documented) at patient's floor/unit and/or counseling patient: (1) Chest pain Chest pain type: unspecified Qualified Code(s): R07.9 - Chest pain, unspecified
[2018-11-13] MEDS: HYDROCODONE/ACETAMOPHEN 5/325MG TAB PO SCH (21:06)
[2018-11-14] MEDS: MoRPHine SULFATE 2 MG/ML CARP IV PRN ×4 (00:24→13:22)
[2018-11-14] MEDS: ONDANSETRON INJ 2 MG/ML 2 ML VIAL IV PRN ×4 (00:24→13:21)
[2018-11-14] MEDS: ALBUT/IPRATROP 3MG/0.5MG NEB 3 ML VIAL NEB PRN ×2 (06:04→11:38)
[2018-11-14] MEDS: predniSONE 50 MG TAB PO SCH (08:19)
[2018-11-14] MEDS: TAMSULOSIN HCL 0.4 MG CAP PO SCH (08:19)
[2018-11-14] MEDS: LOSARTAN POTASSIUM 50 MG TAB PO SCH (08:19)
[2018-11-14] MEDS: ASPIRIN 81 MG ECTAB PO SCH (08:19)
[2018-11-14] MEDS: INSULIN ASPART 100 UNITS/ML 3 ML PEN SC SCH ×2 (08:21→11:56)
[2018-11-14] MEDS: BECLOMETHASONE DIP HFA 80 MCG 8.7G INH INH SCH (08:24)
--- NOTE | 2018-11-14 08:38 | Cardiology Progress Note ---
Date of Service November 14, 2018 Assessment & Plan (1) Coronary artery disease: 2. Hypertension 3. Type 2 DM 4. Epigastric discomfort/Nausea Patient stable post PCI with stenting to OM1 yesterday. No access site complications. Suspect good portion of presenting/current symptoms are non-cardiac. From a cardiac standpoint OK for discharge today. Home on: -- ASA, Clopidogrel for at least 6 months. -- atorvastatin 40mg -- prior losartan. Follow-up with me in 2-3 weeks. Subjective Still with some substernal/epigastric discomfort. Some nausea persists. This morning though states feeling better and ready to head home. Tele reviewed -- no events. Review of Systems Review of Systems: All systems reviewed & are unremarkable except as noted in HPI & below Physical Exam Constitutional: WD/WN, vitals as above Eyes: + anicteric sclerae Respiratory: normal respiratory effort, lungs clear to auscultation Cardiovascular: RRR, no murmur, no edema right radial artery access site with minimal ecchymosis. No hematoma. Distal sensation/pulse intact. Gastrointestinal (Abdomen): Inspection/Auscultation: normal bowel sounds; abdomen not distended Skin: no rashes, warm and dry Neurologic: moves all extremities Psychiatric: A+Ox3, euthymic affect Results & Data Vital Signs (Past 12 Hours) Vital Signs Temp Pulse Resp BP BP Pulse Ox 11/14/18 07:56 36.3 C L 81 20 143/97 H 95 11/14/18 06:05 86 18 95 11/14/18 04:57 36.4 C L 58 L 19 151/81 H 99 11/13/18 23:53 36.4 C L 68 20 150/85 H 97 PG Care Time/CCT Total # of Minutes Spent Total Time Spent with Patient: Total time spent is greater than 50% in coordination of care (as documented) at patient's floor/unit and/or counseling patient:
[2018-11-14] MEDS ORDERED: ATORVASTATIN 40 MG TAB PO SCH (09:00)
[2018-11-14] MEDS ORDERED: CLOPIDOGREL BISULFATE 75 MG TAB PO SCH (09:00)
[2018-11-14] MEDS: METHYLPHENIDATE HCL 10 MG TABLET PO SCH (09:30)
--- NOTE | 2018-11-14 15:24 | Consultation Report ---
DATE OF CONSULTATION: 11/14/2018 REASON FOR EVALUATION: Epigastric pain and previous history of duodenal ulcer. HISTORY OF PRESENT ILLNESS: The patient is a 68-year-old man, presenting with chest and epigastric pain. The patient has a previous history of duodenal ulcers during his hospital stay, his troponins were not significantly elevated. He eventually underwent a cardiac catheterization yesterday and was found to have a coronary artery stenosis and a stent was placed. This was a drug-eluting stent and he was placed on aspirin and Plavix as well. In the past, he has tried proton pump inhibitors, but they have made him sick to his stomach, so he is currently taking cimetidine 800 mg 3 times a day for his epigastric pain. Of note is in December, he had his gallbladder out and it was full of stones and he at times has symptoms that feel like a gallbladder attack with epigastric and right upper quadrant pain and nausea. These come in waves and can leave just as past as they come. He has not been evaluated for common duct stones since his gallbladder operation. PAST MEDICAL HISTORY: Remarkable for asthma, diabetes, hypertension, benign prostatic hypertrophy. MEDICATIONS: Aspirin and Plavix currently. ALLERGIES: PENICILLIN AND NONSTEROIDALS, HAS AN ADVERSE REACTION TO PPIs. FAMILY HISTORY: Positive for hypertension. SOCIAL HISTORY: The patient is . He works outside the home. Former smoker, quitting in 2012. He does consume alcohol. REVIEW OF SYSTEMS: Positive for nausea and epigastric pain. PHYSICAL EXAMINATION: GENERAL: The patient appears awake, alert, in no acute distress. VITAL SIGNS: Normal. He is afebrile. ABDOMEN: Shows laparoscopic scars. There is some tenderness in the epigastric and right upper quadrant. No mass or rebound are appreciated. IMPRESSION AND PLAN: The patient is having epigastric pain and some nausea. He does have a prior history of duodenal ulcer and has been placed on aspirin and Plavix. Unfortunately, he cannot tolerate proton pump inhibitors to protect the stomach, so I am going to have him continue the cimetidine 800 mg 3 times a day for gastric protection. I will also arrange for him to get an EGD as an outpatient because he had breakfast this morning and we will be able to sedate him today. He is ready to be discharged from a cardiac standpoint. In addition, he could potentially have a common bile duct stone as he had multiple stones in his gallbladder in December when it was removed and his symptoms sometimes mimic that, so I plan on also getting an MRCP as an outpatient for a possible common duct stone. These will be arranged as an outpatient. In the meantime, he will continue cimetidine 3 times a day.
--- NOTE | 2018-11-14 16:59 | Discharge Summary ---
Date of Service November 14, 2018 Admission HPI Per Admitting Provider 68-year-old male with a history of asthma who presents with chest pain and asthma exacerbation. Patient reports that he first noticed both some chest tightness as well as shortness of breath yesterday morning when he presented at work he reports that his work recently repaired/changed his HVAC system and now he has event directly over his desk. 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 He went to work this morning as normal, but when he sat at his desk he felt increased wheezing and chest tightness. He left his desk and the sensation improved; however, he returned to other times to his desk which worsened his chest tightness, chest pressure, and shortness of breath. He has not had any sick contacts. He denies any new fevers or chills, he denies any new diaphoresis, denies nausea or vomiting, denies palpitations, denies any new or different pain in his extremities. Principal Diagnosis Epigastric pain and RUQ pain Discharge Exam Constitutional WD/WN, vitals as above Eyes EOM intact bilaterally; no conjunctival abnormality ENMT external ear and nose normal, oropharynx normal Neck trachea midline, no thyromegaly normal visual inspection Respiratory + cough; no respiratory distress and not tachypneic Auscultation: + diminished lung sounds and + wheezes (Mild, scattered) Cardiovascular RRR, no murmur, no edema Gastrointestinal (Abdomen) Inspection/Auscultation: abdomen normal to inspection; abdomen not distended Musculoskeletal no cyanosis or clubbing, extremities motor strength 5/5 Skin no rashes, warm and dry Neurologic moves all extremities and awake Psychiatric Orientation: alert, oriented to person and cooperative Discharge Data Allergies Allergy/AdvReac Type Severity Reaction Status Date / Time Penicillins Allergy Unknown hive Verified 11/12/18 14:16 NSAIDS (Non-Steroidal AdvReac Unknown gi distress Verified 11/12/18 14:16 Anti-Inflamma Consultations 11/12/18 17:42 ED Decision to Admit Stat 11/13/18 12:04 Consult Cardiac Rehabilitation Routine 11/14/18 09:47 Consult Gastroenterology Routine Procedures Performed Operation Date: 11/13/18 11:00 Actual Procedures p Drug Eluting Stent SGl Vessel - Junior Warren MD s IVUS Coronary Single Vessel - Junior Warren MD p Cath, Left with Cors and Vent - Junior Warren MD s Cineradiography w/Routine Exam - Junior Warren MD Ordered Studies 11/13/18 10:48 CL Cath Imgs for PACS use only Routine 11/13/18 11:58 CL IVUS Coronary Single Vessel Routine Hospital Course (1) Chest pain: Troponins were essentially neg (0.05). 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 - Plan for ASA, Plavix, and statin. - Will follow up with Dr. Warren in 2 weeks. (2) Asthma exacerbation: Mild asthma exacerbation from environmental causes. CXR showed no acute process, so will avoid abx for now. - Was on prednisone & DuoNebs, but patient said the prednisone was making him anxious and requested stopping. He did feel the DuoNebs helped though. - Initially his asthma was reported as feeling better after his cath, but on discharge day, he reported continued shortness of breath and chest pain. Not thought to be cardiac by the cardiology team. (3) Nausea: States sx are similar to pre-rocio. Rocio was last fall. Possibly cholidocholithiasis. - Was seen by GI who feel MRCP and EGD are acceptable to do outpatient. Patient wanted to leave the hospital and was amenable to this. (4) DMII (diabetes mellitus, type 2): Was on sliding scale insulin in the hospital. - A1c 7.8 - Resumed home meds on discharge. (5) Hypertension: BP mildly elevated in the ED at 165/110. - Continued home meds (6) BPH (benign prostatic hyperplasia): - Continue tamsulosin (7) DVT prophylaxis: SCDs - Low DVT risk per admission calculator Total Time Total Time Spent Total Time Spent (In Minutes): 45 Total Time Includes: Examination of the Patient, Discharge Planning and Medication Reconciliation Discharge Plan Discharge Items Patient Disposition: Home - Self-Care Reason For Visit: CHEST PAIN Discharge Diagnosis: Possible angina vs. gastritis/GI-related pain Discharge Goals: Decrease discomfort, Diagnostic testing and Therapeutic intervention Activity: Resume your previous activity Non-emergency contact: Primary Care Provider, Test Bore Helper and [employer] Call non-emergency contact if: your symptoms worsen, your pain is not controlled, your pain is worsening and your temperature is above 100.5 Follow-up/Referrals: Junior Warren MD [Physician] - 11/30/18 2:15 pm (Please, follow up at [facility]iology Office with Dr. Warren on MondayNovember 30 at 2:15 pm. *The office is located in [address] of [facility]. This is the big building next to this hospital. If you need to change this appointment, call the office at [phone].) Julián Atwood DO [Primary Care Provider] - 11/21/18 1:50 pm (Please, follow up at Dr. Atwood's office with his associate, Dr. James Abreu, on MondayNovember 21 at 1:50 pm. *If you need to change this appointment, call the office at [phone].) Diet: Carb Consistent or DM2 and Heart Healthy Addtl Provider Instructions: Please follow up with Dr. Chirs for an outpatient EGD (scope of your stomach). Your pain in the epigastric (upper stomach area) and right upper quadrant may be related to GI issues instead of cardiac (or at least contributing). Until you see Dr. Chris, please take an acid-cosme on a daily basis. I prescribed Protonix (pantoprazole); however, any [id number] medication could help. Because of your stent, you will need to take aspirin (baby strength, 81 mg) and Plavix (or clopidogrel) 75 mg every day for at least 1 year. Please do not skip these medications as they are very important in keeping your stent open and your heart healthy. Please follow up with Dr. Warren in the clinic in November. Prescriptions: New pantoprazole 40 mg tablet,delayed release (DR/EC) 40 mg PO DAILY 28 Days Qty: 28 RF: 0 aspirin 81 mg tablet,delayed release (DR/EC) 81 mg PO DAILY Qty: 30 RF: 0 clopidogrel [Plavix] 75 mg tablet 75 mg PO DAILY Qty: 30 RF: 0 atorvastatin 40 mg tablet 40 mg PO HS Qty: 30 RF: 0 Continued tamsulosin 0.4 mg Capsule 0.4 mg PO QAM RF: 0 metformin 500 mg tablet extended release 24 hr 1,000 tab PO BID RF: 0 methylphenidate HCl 30 mg capsule,ER biphasic 50-50 30 tab PO QAM RF: 0 losartan 50 mg tablet 50 mg PO DAILY RF: 0 hydrocodone-acetaminophen 5-325 mg tablet 1 tab PO HS RF: 0 albuterol sulfate 90 mcg/actuation Hfa Aerosol Inhaler 2 puff INHALATION QID RF: 0 Qvar RediHaler 80 mcg/actuation HFA aerosol breath activated 1 mcg inhalation BID RF: 0 glipizide 10 mg Tablet 20 mg PO QAM RF: 0 Stand-Alone Forms: Call Back Authorization, [facility], Work/School Release (Inpt) Discharge Orders: Discharge Order (Routine); Ordered 11/14/18 Ordered By: Naeem Michelle Admission Data Admit Date/Time: 11/12/18 18:13 Attending Provider: Naeem Michelle Admit Provider: Naeem Michelle Primary Care Provider: Julián Atwood Other Providers: Naeem Michelle ; Ivan Chris Service: Telemetry Medical Other Interventions: Discharge Summary Assessment (RN) Last Done: 11/14/18 15:38 DC Date/Time DO NOT enter until pt leaves facility: 11/14/18 16:32
== END 2018-11-14 16:32 | disposition home or self-care (01) ==
LOC: ED 13:08 → 2N 13:08 → 2S 11-13 12:58
DX: J45.901 Unspecified asthma with (acute) exacerbation; E66.9 Obesity, unspecified; Z87.891 Personal history of nicotine dependence; R07.9 Chest pain, unspecified; R11.0 Nausea; N40.0 Benign prostatic hyperplasia without lower urinary tract symptoms; I10 Essential (primary) hypertension; I25.10 Atherosclerotic heart disease of native coronary artery without angina pectoris; Z88.0 Allergy status to penicillin; E11.9 Type 2 diabetes mellitus without complications; Z79.82 Long term (current) use of aspirin; Z79.84 Long term (current) use of oral hypoglycemic drugs; Z68.24 Body mass index [BMI] 24.0-24.9, adult